=== PATIENT | female | born 1950 | race Caucasian/White ===

== ENCOUNTER 2022-07-06 12:45 | Outpatient (CLI) | payer MEDICARE, BC | END 2022-07-06 12:46 | disposition home or self-care (01) | LOC: CSHMAMMO 12:45 | PROVIDERS: ATTEND Internal Medicine | DX: Z12.31 Encounter for screening mammogram for malignant neoplasm of breast (principal); Z80.3 Family history of malignant neoplasm of breast; Q83.9 Congenital malformation of breast, unspecified | CPT/HCPCS: 77063; 77067 ==